=== PATIENT | male | born 1965 | race African-American/Black ===

== ENCOUNTER 2019-02-06 09:51 | Emergency (ER) | payer SELFPAY ==
[~2019-02-06] VITALS: Ht 188 cm; Wt 79.0 kg
[2019-02-06 12:04] VITALS: BP 141/85
== END 2019-02-06 12:06 | disposition home or self-care (01) ==
LOC: ER 09:51
DX: H61.20 Impacted cerumen, unspecified ear (principal); F17.210 Nicotine dependence, cigarettes, uncomplicated
CPT/HCPCS: 69209; 99282